=== PATIENT | female | born 1965 | race Two or more races ===

== ENCOUNTER → 2025-01-29 | Outpatient (CLI) | payer MEDICAID, SELFPAY ==
--- NOTE | 2025-01-29 08:15 | XR_ITS ---
Examination: Diagnostic digital mammography, unilateral, right Computer aided detection 3-D breast Tomosynthesis, unilateral Date and time of exam: January 29, 2025 0755 hours INDICATIONS: Mammogram December 26, 2023 focal asymmetries upper outer right breast inner left breast, mammogram June 26, 2024 12:00 nodule right breast Technique: Nonmagnified MLO, CC views of the right breast have been obtained, reconstructed from 3-D Tomosynthesis images. R2 computer aided detection program utilized for evaluation of suspicious masses and/or abnormal calcifications. 3-D Tomosynthesis images obtained. Findings: Nodule right breast upper outer quadrants again depicted, 9 mm partially. Scattered areas of fibroglandular density Impression: BI-RADS category 3: Probably benign findings 6 month bilateral mammography follow-up is needed
--- NOTE | 2025-01-29 09:59 | XR_ITS ---
Examination: Breast ultrasound, unilateral, right complete Date and time of exam: January 29, 2025 1011 hours INDICATIONS: Right breast sonogram June 26, 2024 12:00 nodule 9 mm Technique: Real-time cannon scale ultrasonographic imaging performed right breast including all 4 quadrants as well as nipple retroareolar and axillary region. Findings: 12:00 nodule circumscribed 9 x 8 mm IMPRESSION: BI-RADS Category 2: Benign findings
== END | disposition home or self-care (01) ==
PROVIDERS: Referring Provider Obstetrics & Gynecology; Visit Provider Obstetrics & Gynecology
DX: R92.331 Mammographic heterogeneous density, right breast (principal); N63.15 Unspecified lump in the right breast, overlapping quadrants
CPT/HCPCS: 76641; 77061; 77065; G0279

== ENCOUNTER 2025-05-16 22:19 | Emergency (ER) | payer MEDICAID, SELFPAY ==
[2025-05-16] VITALS (12 sets, daily range): BP systolic 180–197; BP diastolic 98–111; PULSE 103–149; RESP 15–35; TEMP 36.7–37.5; O2SAT 99–100; BMI 30.7
--- NOTE | 2025-05-16 22:24 | EKG_ITS ---
[facility] Test Date: 2025-05-16 Pat Name: MAULIK TORO Department: Room: - Gender: Female Medicaid Eligibility Specialist: : [id number] Requested By: ED Temporary Provider Order Number: [id number] Reading MD: ED Temporary Provider Measurements Intervals [place] Rate: 152 P: 55 NH: 127 QRS: 23 QRSD: 72 T: 31 QT: 316 QTc: 504 Interpretive Statements SINUS TACHYCARDIA, POSSIBLE ATRIAL FLUTTER NONSPECIFIC ST & T-WAVE ABNORMALITY CRITICAL TEST RESULT No previous ECG available for comparison /store/S0/[id number].pdf
--- NOTE | 2025-05-16 22:47 | EDNOTE_ITS ---
ED Arrhythmia Palp. RME/HPI General Chief Complaint: Arrhythmia/Palpitations Stated Complaint: PALPITATIONS, NAUSEA, [place], DRY MOUTHS, TREMORS Time Seen by Provider: 05/16/25 22:41 Arrival date/time: 05/16/25 22:19 RME / HPI RME / HPI narrative: DR. CASANOVA MAIN ED EVALUATION: 60 y/o female with Hx of Pre-Diabetes, Methamphetamine use, and Anxiety presents to ED c/o heart palpitations, nausea, shortness of breath and dry mouth. Patient also reports back and head pain. Patient began taking Buspirone for Anxiety 4 days ago. Patient denies history of Hypertension, but arrives to ED with BP of 184/107 mmHg. No other concerns or complaints expressed at this time. Related Data Allergies Allergy/AdvReac Type Severity Reaction Status Date / Time KALE Allergy Rash Uncoded 05/16/25 22:21 Review of Systems Review of Systems Systems Reviewed: All systems reviewed, normal except as documented Past Medical History Past Medical History PSYCHO/SOCIAL: Positive Recreational Drug Use and Anxiety Social History SMOKING STATUS: Never smoker SUBSTANCE USE: methamphetamine ED Exam Narrative Physical exam: Generally patient is alert and anxious and dyspneic, heart tachycardic rate with regular rhythm, lungs clear to auscultation equal bilaterally, abdomen soft b owel sounds present nondistended nontender, extremities show no edema, neurologic exam shows the patient to be anxious without focal motor deficits Course Course Course Narrative: CXR was ordered for determining the etiology of shortness of breath. Sepsis alert initiated. Orders made at this time are congruent with ED Adult Sepsis Order List. Re-evaluation is to be completed. Quality Measures Current suspected stage: sepsis Possible source: pulmonary Blood cultures ordered: yes Antibiotic ordered: Yes sepsis Orders Category Date Time Status EKG (ED ONLY) *Do not use* NOW Care 05/16/25 22:24 Completed EKG (ED Only) Stat Exams 05/16/25 22:24 Draft Vital Signs Vital signs: Vital Signs Temperature 98.1 F 05/16/25 22:34 Pulse Rate 149 H 05/16/25 22:34 Respiratory Rate 24 H 05/16/25 22:34 Blood Pressure 180/111 H 05/16/25 22:34 Pulse Oximetry (%) 99 05/16/25 22:34 Oxygen Delivery Method Room Air 05/16/25 22:34 Arrhythmia/Palpitations MDM Narrative MDM Narrative:: Scribe Attestation: I, Maria Frazier, am scribing for and in the presence of Dr. Casanova. Provider Notation: Although this document has been carefully reviewed, there may still be some phonetic and other typographical errors. These errors are purely grammatical due to imperfections in the software program and should not be construed in any way to? compromise the substance of the patient's medical care during this visit. I interpreted all labs. Patient had several SIRS criteria. Septic workup was initiated. After blood cultures are obtained the patient received Rocephin 1 g IV and azithromycin 500 mg p.o. Lactic acid level is 3.8. Chest x-ray is clear. Urinalysis showed no evidence of infection. CT scan done of the chest with IV contrast showed no evidence of pulmonary embolism or acute disease process. Urinary tox screen was positive only positive for methamphetamine. EKG shows sinus tachycardia at a rate of 152 without ischemic changes. For the patient's elevated blood pressure here in the emergency room the patient received labetalol 20 mg IV x 2 which helped bring the blood pressure down to 143/83. I do long discussion with the patient on her need to be honest with the care provider and let them know that she was on methamphetamine. I believe all the patient's symptomatology tonight to be due to the methamphetamine abuse. She will be discharged in stable condition to follow-up with primary care to avoid methamphetamine in the future. Patient data External records reviewed:: [facility] previous records (No prior ED records available for review.) Clinical information provided by:: patient Social determinants that could affect healthcare access:: none Patient has the following chronic illnesses:: Pre-Diabetes, Anxiety, Recreational drugs use How is presenting disease/condition affected by chronic disease/condition?: exacerbated by Evaluation data The following diagnostics were reviewed and interpreted by me:: lab results, radiology exam(s) and EKG tracing(s) Lab and/or radiology exams considered but not ordered:: None Interpretation Summary: RADIOLOGY Chest X-Ray: FINDINGS: Normal heart size. Lungs are clear. The osseous structures are intact IMPRESSION: No active disease. Chest CTA: Pending official radiology report. Medications / Prescriptions Medications or Prescriptions considered but not ordered:: None Medication administrations:: See above if any Consultations Consultation(s) initiated? (list below): No Diagnosis Differential diagnosis arrhythmia/palpitations: palpitations, anxiety, sinus tachycardia, artial flutter, ventricular premature beats, ventricular tachycardia and other (PNA, CHF, Bronchitis, Sepsis) Most likely diagnosis given after review of the tests above:: None Admission Indicated Admission indicated?: not indicated Explain why admission is indicated or not indicated:: Patient does not meet admission criteria Admission Request Was there a request for admission?: No Disposition Plan Disposition Plan: Discharge Discharge Attestation Discharge Attestation: The patient and all family members were given an opportunity to ask questions and understood the discharge instructions. Discharge instructions specifically effects, indications for sooner follow up or return to the emergency department, and the expected course of current diagnosis. Patient condition: Stable Critical Care Time Critical Care Time Critical Care Time: Yes Total Critical Care Time (min.): 35 Attestation: Excluding other billable procedures Discharge Plan Plan Patient Disposition: HOME (Self Care) Prescriptions/Referrals Referrals: Shanika Mensah MD [Primary Care Provider] - In 1 week Problem List Clinical Impression: Methamphetamine abuse Patient/Caregiver Discharge Instructions Education Materials: Understanding Methamphetamine ... Additional Instructions: Avoid methamphetamine in the future. Print Language: Emirati Stand Alone Forms: Heather Award Info., Patient Portal Info Letter
--- NOTE | 2025-05-16 22:48 | XR_ITS ---
Examination: AP chest single view TECHNIQUE: AP portable upright chest single view Dated: May 16, 2025 11:06 PM INDICATIONS: Chest pain today. FINDINGS: Normal heart size. Lungs are clear. The osseous structures are intact IMPRESSION: No active disease.
[2025-05-16 23:11] LABS: Lactate (Lactic Acid) 3.8 mMol/L (0.4-2.0)
[2025-05-16 23:12] LABS: Basophils # (Auto) 0.0 Thou/mm3 (0.0-0.2); Basophils % (Auto) 0 % (0-2.5); Eosinophils # (Auto) 0.0 Thou/mm3 (0.0-0.5); Eosinophils % (Auto) 0 % (0-10); Hematocrit 42.5 % (36.0-46.0); Hemoglobin 14.4 g/dL (12.0-16.0); Immature Granulocytes Auto 0.04 Thou/mm3 (0.00-0.00); Lymphocytes # (Auto) 1.3 Thou/mm3 (1.0-4.8); Lymphocytes % (Auto) 10 % (10-50); Mean Corpuscular HGB Conc 33.9 g/dl (31.0-37.0); Mean Corpuscular Hemoglobin 30.2 pg (25.0-35.0); Mean Corpuscular Volume 89 fL (80-100); Monocytes # (Auto) 0.5 Thou/mm3 (0.0-0.8); Monocytes % (Auto) 4 % (0-12); Neutrophils # (Auto) 11.5 Thou/mm3 (1.8-7.7); Neutrophils % (Auto) 86 % (37-80); Nucleated Red Blood Cell # 0.00 Thou/mm3 (0.00-0.00); Nucleated Red Blood Cell % 0 /100 WBC (0); Platelet Count 233 Thou/mm3 (140-440); RDW Standard Deviation 43.1 fL (36.4-46.3); Red Blood Count 4.77 Miln/mm3 (4.00-5.20); White Blood Count 13.4 Thou/mm3 (3.6-11.0)
[2025-05-16] MEDS: cefTRIAXone/D5w 1gm IV premix 1 GM/50 ML BAG IV (23:14)
[2025-05-16] MEDS: LABETALOL INJ 5 MG/ML VIAL 20 ML 20 MG IVP ×2 (23:14→23:45)
--- NOTE | 2025-05-16 23:26 | XR_ITS ---
Examination: CTA chest with intravenous contrast 2-D reconstructions 3-D reconstructions, vascular Date and time of exam: May 17 5, 0033 hours INDICATIONS: Chest pain shortness of breath difficulty breathing today CTDI: vol (mGy) 30.90. DLP: (mGycm) 401. Technique: Multiple axial sections of the thorax have been obtained. 3 mm slice thickness, from below the hemidiaphragms to above the apices of the lungs. Mediastinal and lung density settings have been obtained. 2-D sagittal and coronal reconstructions. 3-D angiographic renderings, 3-D volume renderings, 3D post processing, vascular maximum intensity projections obtained. Contrast administered is intravenous 100 cc Isovue 370.. Low dose protocols were performed. One or more of the following dose reduction techniques were used; automated exposure control, adjustment of the mA and/or KV according to patient size, use of iterative reconstruction technique. Findings: No thoracic aortic aneurysmal dilatation or dissection. No pulmonary artery filling defects. 8 mm nodular density left upper lobe, recommend follow-up No pneumonia pulmonary edema or pleural disease. No liver splenic lesion Mild diffuse thoracic degenerative disc disease IMPRESSION: Negative for pulmonary artery emboli 8 mm nodular density left upper lobe, with this study as baseline recommend 6 month follow-up CT chest without contrast
[2025-05-16] MEDS: AZITHROMYCIN 250 MG TABLET 500 MG PO (23:34)
[2025-05-16 23:36] LABS: Collection Type, Urine Voided
[2025-05-16 23:38] LABS: B-Type Natriuretic Peptide < 20 pg/mL (0-100)
[2025-05-16 23:40] LABS: Alanine Aminotransferase 22 U/L (10-49); Albumin, Serum 4.8 gm/dL (3.5-5.0); Albumin/Globulin Ratio 1.7 (1.2-2.2); Alkaline Phosphatase 64 U/L (46-116); Anion Gap 16 (7-16); Aspartate Amino Transferase 20 U/L (0-34); BUN/Creatinine Ratio 21 Ratio (12-20); Bilirubin,Total 0.7 mg/dL (0.3-1.2); Blood Urea Nitrogen 17 mg/dL (9-23); Calcium 10.9 mg/dL (8.3-10.6); Calcium (Corrected) 10.9 mg/dL (8.5-10.1); Carbon Dioxide 19.8 mMol/L (20.0-31.0); Chloride 102 mMol/L (98-107); Creatinine (Component) 0.8 mg/dL (0.6-1.3); Estimated Creatinine Clearance 82.0 mL/min (>60); Globulin 2.9 gm/dL (2.3-3.5); Glucose 184 mg/dL (74-106); Magnesium 1.9 mg/dL (1.6-2.6); Osmolality,Calculated 282 (275-295); Potassium 3.6 mMol/L (3.4-5.1); Sodium 138 mMol/L (136-145); Total Protein 7.7 gm/dL (5.7-8.2); Troponin I 0.024 ng/mL (0.0-0.045); eGFR > 60 See Note
[2025-05-16 23:44] LABS: Base Excess, Venous 0 (-3-3); O2 Saturation, Venous 94 % (96-97); PCO2, Venous 20 mmHg (36-56); PO2, Venous 51 mmHg (15-58); pH, Venous 7.59 (7.33-7.66)
[2025-05-16 23:44] LABS: Bilirubin,Urine Negative (Negative); Blood,Urine Negative (Negative); Clarity,Urine Clear (Clear/Hazy); Color,Urine Colorless (Lt Yel-Yel); Glucose, Urine Negative (Negative); Ketones,Urine 1+ (Negative); Leukocyte Esterase,Urine Positive (Negative); Nitrite,Urine Negative (Negative); PH,Urine 6.5 (5.0-7.0); Protein,Urine Negative (Neg - Trace); RBC,Urine 1 /hpf (0-3); Specific Gravity,Urine 1.009 (1.001-1.035); Squamous Epithelial Cell,Urine 1 /hpf (0-5); Urobilinogen,Urine Negative mg/dL (0.0-1.0); WBC,Urine 6 /hpf (0-5)
[2025-05-16 23:53] LABS: Amphetamine/Methamp Scrn,U Positive (Negative); Barbiturate Screen,Urine Negative (Negative); Benzodiazepines Screen,Urine Negative (Negative); Benzoylecgonine Screen, Ur Negative (Negative); Fentanyl Screen,Urine Negative (Negative); Opiate Screen,Urine Negative (Negative); THC Screen,Urine Negative (Negative)
[2025-05-17] VITALS (7 sets, daily range): BP systolic 172–204; BP diastolic 92–111; PULSE 91–101; RESP 15–27; TEMP 36.7; O2SAT 98–100
[2025-05-17 02:08] LABS: Reflex Lactate? Y
--- NOTE | 2025-05-17 02:13 | PRELIM_ITS ---
CT angiogram of the chest with intravenous contrast (axial sections with sagittal and coronal reformats. 3D/MIP reconstructed images) May 17, 2025 0033 hours Clinical History: PE. No prior study is available for comparison. Findings: There is no filling defect within the pulmonary artery divisions to suggest pulmonary thromboembolism. The mediastinum demonstrates no evidence of mass or lymphadenopathy. The thoracic aorta is unremarkable. There is no pericardial effusion. There is a 8-9 mm subpleural nodular opacity in the left upper lobe. No evidence of pleural effusion or pneumothorax. The osseous structures are unremarkable. The visualized upper abdominal viscera are unremarkable. Impression: No evidence of pulmonary thromboembolism. 8-9 mm subpleural nodular opacity in the left upper lobe. Recommend follow-up as per Fleischner's criteria. Report Electronically Signed By: Andres De La Fuente 05/17/2025 2:13:06 AM [EST]
== END 2025-05-17 02:10 | disposition home or self-care (01) ==
PROVIDERS: Emergency Provider Emergency Medicine; PCP Obstetrics & Gynecology
DX: F15.10 Other stimulant abuse, uncomplicated (principal)
CPT/HCPCS: 36415; 71045; 71275; 80053; 80307; 81001; 82803; 83605; 83735; 83880; 84484; 85025; 87040; 93005; 96365; 96375; 96376; 99283; A4649; J0696; J3490; Q9967; A9270; J1920

== ENCOUNTER → 2025-06-11 | Outpatient (CLI) | payer MEDICAID, SELFPAY ==
--- NOTE | 2025-06-11 09:45 | XR_ITS ---
Examination: MRI cervical spine, without intravenous contrast. MRI cervical spine , with intravenous contrast. Exam date and time: June 11, 2025 1001 hours INDICATIONS: Neck pain radiating down both arms beginning 3 months ago after falling Technique: Multiple axial, sagittal and coronal images of the cervical spine have been obtained with the Siemens high-resolution 1.5 Yu MRI scanner. Images obtained included T2 weighted fat suppressed sagittal sections, TR 3500, TE 46, T2 weighted coronal fat suppressed images, TR 3050, TE 84, T2-weighted transverse fat suppressed images, TR 30-60, TE 63, proton density transverse images, TR 4720, TE 46, and T1 weighted coronal images, TR 560, TE 13. Axial, sagittal and coronal images are obtained post intravenous injection 60 cc gadolinium. Findings: Adequate alignment cervical vertebral bodies Hemangiomatous change C7 No cervical fracture. Intact odontoid Mild to moderate disc narrowing C5-C6 Diffuse cervical disc desiccation C3-C4 moderate right neural foraminal stenosis C4-C5 moderate right neural foraminal stenosis C5-C6 4 mm right paracentral osteophyte disc complex, moderate bilateral neural foraminal stenosis IMPRESSION: C3-C4, C4-C5 moderate right neural foraminal stenosis C5-C6 4 mm right paracentral osteophyte disc complex, moderate bilateral neural foraminal stenosis
== END | disposition home or self-care (01) ==
PROVIDERS: PCP Obstetrics & Gynecology; Referring Provider Obstetrics & Gynecology; Visit Provider Nurse Practitioner Family
DX: M48.02 Spinal stenosis, cervical region (principal); M25.78 Osteophyte, vertebrae
CPT/HCPCS: 72156; A9577

== ENCOUNTER → 2025-08-14 | Outpatient (CLI) | payer MEDICAID, SELFPAY ==
--- NOTE | 2025-08-14 08:45 | XR_ITS ---
Examination: Diagnostic digital mammography, bilateral Computer aided detection 3-D breast Tomosynthesis, bilateral Date and time of exam: August 14, 2025, 0855 hours INDICATIONS: Mammogram December 26, 2023 focal asymmetries upper outer right breast in her left breast Technique: Nonmagnified MLO, CC views of the breasts to been obtained, reconstructed from 3-D Tomosynthesis images. R2 computer aided detection program utilized for evaluation of suspicious masses and/or abnormal calcifications. 3-D Tomosynthesis images obtained. Findings: Scattered areas of fibroglandular density Focal asymmetry indistinct margins outer right breast again depicted, measuring 9 mm, likely upper right breast on the MLO view Suspicious left breast mass not depicted Impression: BI-RADS Category 0: Incomplete: Need additional imaging evaluation Bilateral breast sonography follow-up is needed.
== END | disposition home or self-care (01) ==
LOC: CDIM 08:47
PROVIDERS: Referring Provider Nurse Practitioner Family; Visit Provider Nurse Practitioner Family
DX: R92.2 Inconclusive mammogram (principal)
CPT/HCPCS: 77062; 77066; G0279